=== PATIENT | female | born 1935 | race Caucasian/White ===

== ENCOUNTER 2016-09-17 14:53 | Inpatient (IN) | payer MEDICARE ==
[~2016-09-17] VITALS: Ht 152.4 cm; Wt 46.2 kg
[2016-09-17 15:44] LABS: BASOPHILS 0.2 % (0.0-2.0); EOSINOPHILS 0.3 % (0-7); HEMATOCRIT 40.8 % (36.0-48.0); LYMPHOCYTES 16.4 % (15-50); MCHC 31.9 g/dL (31.0-37.0); MCV 87.9 fL (80.0-100.0); MEAN PLATELET VOLUME 12.2 fL (7.4-10.4); MONOCYTES 9.9 % (2-11); NEUTROPHILS 72.2 % (40-80); PLATELET COUNT 267 10x3/uL (130-400); RBC 4.64 10x6/uL (4.00-5.40); RDW 15.3 % (11.5-14.5); WBC 14.3 10x3/uL (4.8-10.8)
[2016-09-17 16:20] LABS: ALBUMIN 3.4 g/dL (3.4-5.0); ANION GAP 19.9 mmol/L (8-16); BILIRUBIN - TOTAL 0.84 mg/dL (0.2-1.3); CALCIUM 7.9 mg/dL (8.5-10.1); CARBON DIOXIDE 20.4 mmol/L (21.0-32.0); CREATININE - SERUM 1.3 mg/dL (0.6-1.3); POTASSIUM - SERUM 4.3 mmol/L (3.5-5.1); PROTEIN - SERUM 7.2 g/dL (6.4-8.2)
[2016-09-17 16:22] LABS: DIGOXIN 0.2 ng/mL (0.90-2.00)
--- NOTE | 2016-09-17 19:54 | NUR ---
ARRIVED TO FLOOR VIA STRETCHER, ACCOMPANIED BY HOSPITAL STAFF. ORIENTED TO UNIT. PLACED ON TELEMETRY. DOBUTAMINE GTT TO RIGHT FOREARM INFUSING @ 3ML/HR. CALL LIGHT IN REACH. WILL CONTINUE TO MONITOR. SEE NURSE ASSESSMENT.
[2016-09-17 22:23] VITALS: BP 114/72
[2016-09-17] MEDS ORDERED: LANOXIN250 MCG PO (22:23)
[2016-09-17] MEDS ORDERED: FUROSEMIDE40 MG PO (22:23)
[2016-09-17] MEDS ORDERED: TRAZODONE HCL50 MG PO (22:24)
[2016-09-17] MEDS ORDERED: K-DUR20 MEQ PO (22:24)
[2016-09-17] MEDS ORDERED: OMEPRAZOLE40 MG PO (22:24)
[2016-09-17 23:42] VITALS: BP 114/72; BMI 19.9
[2016-09-18 03:36] VITALS: BP 136/90
[2016-09-18 06:22] VITALS: BP 88/52
--- NOTE | 2016-09-18 08:40 | NUR ---
D/C PTS DOBUTAMINE DRIP PER ORDER. INITIATED NS @30ML/HR VIA R.FA PIV WITH DRSG CDI AND SWAB CAPS IN USE. ADMINISTERED SCHEDULED AMIODARONE AND TEACHING PROVIDED. PT IS SITTING UP IN BED WITH VISITORS AT BEDSIDE. PT DENIES ANY CURRENT NEEDS. WILL CPOC.
[2016-09-18 09:05] VITALS: BP 95/56
--- NOTE | 2016-09-18 11:12 | NUR ---
Patient Name: LIA PARIKH Admission Status: ER Accout number: [id number] Admission Date: 09-17-2016 : 1935 Admission Diagnosis:VENTRICULAR TACHYCARDIA Attending: KAYE Current LOS: 1 Anticipated DC Date: Planned Disposition: Independent Living Primary Insurance: [facility] Discharge Planning Comments: * Is the patient Alert and Oriented? Yes 0 * How many steps to enter\exit or inside your home? ELEVATOR 0 * PCP DR. WEAVER 0 * Pharmacy [facility], [place] 0 * Preadmission Environment [facility]DEPENDENT Living 0 * Facility Name [facility] PHONE [phone], FAX [phone] 0 * ADLs Partial Dependent 0 * Partial ADLs (Assistance needed) Medication Management 0 * Equipment Shower Chair Walker 0 * Other Equipment NO MEDICAL EQUIPMENT PROVIDER PREFERENCE 0 * List name and contact numbers for known caregivers / representatives who currently or will assist patient after discharge: EBENEZER MINA, FRIEND, 0 * Community resources currently utilized None 0 * Please name any agencies selected above. NONE 0 * Additional services required to return to the preadmission environment? No 0 * Can the patient safely return to the preadmission environment? Yes 0 * Has this patient been hospitalized within the prior 30 days at any hospital? No 0 CM MET WITH PT IN ROOM TO DISCUSS DISCHARGE PLANNING AND NEEDS. PT REPORTS LIVING AT [facility] FOR THREE YEARS; PT REPORTS RECENT MOVE FROM ASSISTED LIVING TO INDEPENDENT LIVING WHERE SHE HAS HELP WITH MEDICATIONS, PLUMBER SUPERVISOR ONCE WEEKLY AND EMERGENCY ASSISTANCE IF NEEDED. PT HAS WALKER WITH A SEAT AND SHOWER CHAIR. PT HAS NO MEDICAL EQUIPMENT PROVIDER PREFERENCE. CM DISCUSSED AVAILABILITY OF HOME HEALTH, REHAB SERVICES AND MEDICAL EQUIPMENT. PT REPORTS UNKNOWN DISCHARGE NEEDS, PLANS TO RETURN TO [facility]ENT [facility] AND REPORTS [facility] WILL PICK HER UP FOR DISCHARGE HOME. IF REHAB IS NEEDED, PT WILL NOT GO TO [facility] SHE HAS BEEN THERE BEFORE AND NOT GOTTEN GOOD CARE. IF NEEDED, PT WOULD REHAB AT [facility], CHOICE SIGNED. PT AGAIN STATED PLAN TO RETURN HOME TO HER APARTMENT AT [facility]. PT PLANS TO RETURN TO [facility], CM TO FOLLOW AND ASSIST NEEDED. Insurance Claims Representative: Nicko Mary
[2016-09-18 12:28] VITALS: BP 96/71
[2016-09-18 12:57] VITALS: Ht 152.4 cm; Wt 46.2 kg
[2016-09-18 16:28] VITALS: BP 99/66
--- NOTE | 2016-09-18 19:37 | NUR ---
RESUMED CARE OF PT, LYING IN BED RESPIRATIONS EVEN AND UNLABRED ON ROOM AIR. RIGHT FOREARM SALINE LOCKED. 75 CAF ON TELEMETRY. CALL LIGHT IN REACH, WILL CONTINUE TO MONITOR. SEE NURSE ASSESSMENT. NO NEEDS VOICED AT THIS TIME.
[2016-09-18 19:53] VITALS: BP 110/64
--- NOTE | 2016-09-19 00:11 | NUR ---
FACILITY ATTENDANT AT BEDSIDE TO OBTAIN VITALS, CALL LIGHT IN REACH. WILL CONTINUE WITH PLAN OF CARE.
[2016-09-19 00:24] VITALS: BP 96/60
[2016-09-19 04:23] VITALS: BP 110/62
--- NOTE | 2016-09-19 08:47 | EC ---
PATIENT:LIA PARIKH DATE OF SERVICE: 09/17/16 SEX: F MEDICAL RECORD: [id number] DATE OF : [birth year] LOCATION:D. D.212 AGE OF PATIENT: 80 ADMISSION DATE: 09/17/16 REFERRING PHYSICIAN: INTERPRETING PHYSICIAN: JAYDEN BARRIGA MD ECHOCARDIOGRAM REPORT ECHO CHARGES 4 ECHO COMPLETE CLINICAL DIAGNOSIS: CHF ECHOCARDIOGRAPHIC MEASUREMENTS (adult normal given) AC root (d.<3.7cm) 2.3 LV Septum d (<1.2 cm> 1.1 Valve Excursion 0.9 LV Septum (systole) 1.2 Left Atria (s.<4.0cm> 3.8 LVPW d(<1.2cm) 1.0 RV (d.<2.3cm) 3.6 LVPW (sytole) 1.2 LV diastole(<5.6CM) 5.0 MV E-F(>70mm/sec) LV systole 3.8 LVOT Diameter 0.8 MV exc.(>10mm) 1.3 Est.ejection fraction (50-75%) Pericardial Effusion N DOPPLER: LVIT A 56.0 E 111 LA RVSP 67 LVOT 166 AOP1/2T 530 Asc. Ao 450 RVOT 61 RA PA 161 AV Gradient Peak 80.83 AV Mean 51.50 AV Area 0.1 MV Gradient Peak 10.54 MV Mean 2.67 MV Area COMMENTS: Hardware Supplies Sales Representative: Odette SAMPSON Director Clinical Research:1 Dr. Barriga TAPE# PACS DATE OF SERVICE: 09/18/2016 Echocardiogram FINDINGS: 1. Left ventricular chamber size is within normal limits. Left ventricular systolic function is normal. Overall ejection fraction estimated at 50%. 2. Left atrium is within normal limits at 3.8 cm. Right atrium and right ventricular chamber sizes are moderately dilated. 3. Valvular structures: Aortic valve demonstrates severe calcific aortic ECHOCARDIOGRAM REPORT [id number] LIA PARIKH stenosis, valve area calculates to less than 0.5 cm squared and there is a gradient of 81 mm across the valve. The remaining valvular structures have normal structure and motion. 4. Doppler interrogation reveals moderate mitral regurgitation, moderate tricuspid regurgitation, no other valvular insufficiency or stenosis. Pulmonary systolic pressure is elevated and estimated at 67 mmHg. 5. No evidence of pericardial effusion or left ventricular thrombus. TRANSINT:[id number] Voice Confirmation ID: [id number] DOCUMENT ID: [id number] JAYDEN BARRIGA MD at 0847 CC: [id number] DICTATION DATE: 09/18/16 1247 BLADE OPERATOR: 09/18/16 1439 ADM IN [place] [id number] [place] [id number]
[2016-09-19 08:49] VITALS: BP 104/66
--- NOTE | 2016-09-19 09:34 | NUR ---
TELEMETRY CAF. RESP UL ON 02 2L NC. CALL LIGHT IN REACH. WILL CONT. PLAN OF CARE.
--- NOTE | 2016-09-19 12:14 | NUR ---
Patient Name: LIA PARIKH Encounter No: [id number] : 1935 Primary Insurance: [employer] Anticipated DC Date: 09-19-2016 Planned Disposition: Home with Home Health External Planned Provider: [facility] DCP follow-up note: CM RECEIVE DISCHARGE ORDER, MET WITH PT IN ROOM. PT IN AGREEMENT WITH DISCHARGE BACK TO [facility]. CM DISCUSSED AVAILABILITY OF REHAB SERVICES, HOME HEALTH AND MEDICAL EQUIPMENT. PT DENIES REHAB AND EQUIPMENT NEEDS, DOES NOT KNOW IF SHE NEEDS HOME HEALTH BUT WOULD ACCEPT IT. PT REPORTS BEING OUT OF BED INDEPENDENTLY TO THE BATHROOM WITH HER WALKER. PT DOES NOT KNOW HOW SHE IS GOING TO GET HOME AND REQUESTED CM CALL HER POWER OF CLOTH WASHER, EBENEZER. IMPORTANT MESSAGE FROM MEDICARE PROVIDED AND EXPLAINED. CM CALLED EBENEZER MINA, , WHO WILL HOT CELL TECHNICIAN PT FOR DISCHARGE HOME TODAY AND REQUESTED HOME HEALTH FOR PATIENT SHE HAS BEEN WEAK, SHE WOULD LIKE TO USE [facility] THEY HAVE USED [facility] IN THE PAST. CM EXPLAINED THAT THERAPY EVALUATION IS PENDING AND CM WILL ARRANGE HOME HEALTH IF THERE IS A NEED. OF CLOTH WASHER FOR MEDICAL DECISIONS. CM CALLED [facility], , SPOKE TO VU WHO REPORTS THEY WILL ACCEPT PT BACK INTO [facility]ENT LIVING AND WILL KEEP A CLOSE EYE ON HER. VU ASKED THAT NURSE REPORT BE CALLED TO DIGNA OR FOZIA. CM TO FAX DISCHARGE INFORMATION TO [phone]. CM TO CALL EBENEZER MINA, , WHEN PT IS READY TO BE PICKED UP FOR DISCHARGE HOME. CM WAITING THERAPY EVALUATION TO DETERMINE HOME HEALTH NEED. Nicko Mary, CASE MANAGEMENT
[2016-09-19 12:43] VITALS: BP 111/74
--- NOTE | 2016-09-19 12:52 | NUR ---
UP AMBULATING WITH PT SOHA.
[2016-09-19] MEDS ORDERED: CORDARONE200 MG PO ×2 (13:56→14:09)
--- NOTE | 2016-09-19 13:56 | NUR ---
Patient Name: LIA PARIKH Encounter No: [id number] : 1935 Primary Insurance: [employer] Anticipated DC Date: 09-19-2016 Planned Disposition: Home with Home Health External Planned Provider: [facility] DCP follow-up note: CM SPOKE TO PT FOLLOWING THERAPY EVALUATION, PT REPORTS SHE FELT GOOD ENOUGH TO GO BACK HOME BUT WANTS HOME HEALTH FOR CONTINUED THERAPY. CM SPOKE TO CLOTH MENDER WHO OBSERVED PT'S THERAPY WALK AND RECOMMENDED HOME HEALTH FOR CONTNUED THERAPY. CM CALLED [facility], , SPOKE TO MAGALYS WHO TOOK REFERRAL AND WILL CONTACT DR. WEAVER FOR ORDERS THE DOCTOR WILL HAVE TO SIGN ORDERS BEFORE [facility] PT TO [facility]. CM FAXED REFERRAL TO [facility] AT [phone]. CM FAXED DISCHARGE INFORMATION TO [facility] AT [phone]. ALHAJI SPOKE TO EBENEZER MINA IN ROOM WITH PT, EBENEZER AND PT BOTH IN AGREEMENT WITH DISCHARGE PLAN TO [facility] WITH [facility]. EBENEZER UNDERSTANDS THAT DR. WEAVER HAS TO PROVIDE ORDERS BEFORE HOME HEALTH WILL ADMIT AND [facility] IS CONTACTING DR. WEAVER FOR ORDERS. NURSE REPORT TO BE CALLED TO VU OR FOZIA AT [facility], . EBENEZER MINA WILL YARD CLERK FOR DISCHARGE HOME. Nicko Mary, CASE MANAGEMENT
--- NOTE | 2016-09-19 16:20 | NUR ---
IV AND TELEMETRY DCD. DC PLANS GIVEN. UNDERSTANDING VOICED. ESCORTED TO CAR BY W/C.
--- NOTE | 2016-09-23 10:32 | DS ---
PATIENT:LIA GUTIERREZ :31 MEDICAL RECORD: [id number] DISCHARGE SUMMARY ADMISSION DATE: 09/17/16 DISCHARGE DATE: 09/19/16 DATE OF DISCHARGE: 09/19/2016 DIAGNOSES: 1. Atrial fibrillation, chronic. 2. Ventricular tachycardia. 3. 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 4. Severe aortic stenosis. HOSPITAL COURSE: Mrs. Gutierrez presents with increased shortness of breath, found to have pulmonary edema. She was found to have chronic atrial fibrillation, but also episodes of ventricular tachycardia. She underwent diuresis. She was placed on p.o. Cordarone. She had no further episodes of ventricular tachycardia. Her pulmonary edema cleared easily with Lasix. Echocardiogram revealed severe aortic stenosis. This is the etiology of her pulmonary edema and heart failure symptomatology. She had a preserved LV function, so this really was not heart failure, only aortic stenosis. She was discharged home with Lasix, potassium, and amiodarone. Will follow up with [facility] in 1 month. TRANSINT:[id number] Voice Confirmation ID: [id number] DOCUMENT ID: [id number] JAYDEN CONNOLLY MD at 1032 CC: [id number] DICTATION DATE: 09/19/16 1059 BINDER CASER: 09/20/16 0114 DIS IN 09/19/16 [place] [id number] [place] [address]
== END 2016-09-19 16:21 | disposition home health service (06) | DRG 307 ==
LOC: D.ER 14:53 → OBSVTIME 19:16 → D.M2 19:16
PROVIDERS: Emergency Medicine; ADMIT Internal Medicine Interventional Cardiology
DX: I35.0 Nonrheumatic aortic (valve) stenosis (principal); I47.2 Ventricular tachycardia; I48.2 Chronic atrial fibrillation; I50.9 Heart failure, unspecified; Z87.891 Personal history of nicotine dependence

== ENCOUNTER 2016-10-02 11:05 | Inpatient (IN) | payer MEDICARE ==
[~2016-10-02] VITALS: Ht 152.4 cm; Wt 44.5 kg
[~2016-10-02 11:05] MED LIST: CORDARONE200 MG PO; FUROSEMIDE40 MG PO; K-DUR20 MEQ PO; LANOXIN250 MCG PO; OMEPRAZOLE40 MG PO; TRAZODONE HCL50 MG PO
[2016-10-02 12:10] LABS: BASOPHILS 0.2 % (0.0-2.0); EOSINOPHILS 0.4 % (0-7); HEMATOCRIT 43.5 % (36.0-48.0); IMMATURE GRANULOCYTES 0.4 % (0-5); LYMPHOCYTES 22.1 % (15-50); MCH 28.2 pg (26.0-34.0); MCHC 32.2 g/dL (31.0-37.0); MCV 87.5 fL (80.0-100.0); MEAN PLATELET VOLUME 12.6 fL (7.4-10.4); MONOCYTES 10.6 % (2-11); NEUTROPHILS 66.3 % (40-80); RBC 4.97 10x6/uL (4.00-5.40); RDW 16.5 % (11.5-14.5); WBC 10.3 10x3/uL (4.8-10.8)
[2016-10-02 12:11] LABS: PLATELET COUNT 164 10x3/uL (130-400)
[2016-10-02 12:16] LABS: INR 1.52 (0.85-1.17); PROTIME 18.3 SECONDS (11.6-15.0)
[2016-10-02 12:22] LABS: ALBUMIN 3.7 g/dL (3.4-5.0); ANION GAP 19.7 mmol/L (8-16); BILIRUBIN - TOTAL 1.65 mg/dL (0.2-1.3); CALCIUM 9.3 mg/dL (8.5-10.1); CARBON DIOXIDE 19.8 mmol/L (21.0-32.0); CREATININE - SERUM 1.4 mg/dL (0.6-1.3); POTASSIUM - SERUM 4.5 mmol/L (3.5-5.1); PROTEIN - SERUM 7.3 g/dL (6.4-8.2)
[2016-10-02 12:31] LABS: MAGNESIUM - SERUM 1.3 mg/dL (1.8-2.4); TROPONIN-I 0.052 ng/mL (0.000-0.060)
--- NOTE | 2016-10-02 18:18 | NUR ---
PATIENT ADMITTED FROM ER DIAG: PNEUMONIA/AFIB. DR DEL VALLE. ALERT/ORIENT X4. LEFT AREM SALINE LOCK 18 REJI. OXYGEN ON AT 4L PER N/C.
[2016-10-02 20:00] VITALS: BP 101/70
[2016-10-02 21:16] VITALS: BP 101/71; BMI 19.1
[2016-10-03] VITALS: BP 81/94
--- NOTE | 2016-10-03 01:43 | NUR ---
PT CALLED FOR ASSISTANCE TO BR. PT VOIDED WITHOUT ANY DIFFICULTIES. PT STATES SHE WAS RESTING WELL AND READY TO CONTINUE SLEEPING. ASSISTED HER BACK INTO BED NO FURTHER NEEDS NOTED AT THIS TIME. WILL CTM.
[2016-10-03 04:00] VITALS: BP 95/60
--- NOTE | 2016-10-03 05:29 | NUR ---
PROVIDED PT WITH MORNING MEDICATIONS. PT SITTING UP IN BED RESTING QUIETLY. PT STATES SHE SLEPT PRETTY GOOD AND JUST HOPES TO GET BETTER SO SHE CAN BE DISCHARGED. PT IS AWARE WE NEED A UA AND CX AND VERBALIZED UNDERSTANDING ON PROPER CLEAN MIDSTREAM COLLECTION PROCESS. CUP IN ROOM, PT WILL CALL WHEN NEEDING TO URINATE AGAIN. PT DENIES ANY CURRENT NEEDS AT THIS TIME. CL IN REACH, BED IN LOWEST, SIDE RAILS X2 WITH BUILT IN BED ALARM ON. WILL CPOC.
--- NOTE | 2016-10-03 05:33 | HP ---
PATIENT: LIA PARIKH MEDICAL RECORD: [id number] ACCOUNT: [id number] LOCATION:[facility].2111 : [birth year] ADMISSION DATE: 10/02/16 HISTORY AND PHYSICAL EXAMINATION REASON FOR ADMISSION: Cough and vomiting. HISTORY OF PRESENT ILLNESS: The patient is an 80-year-old female, patient of Dr. Batista at [facility] and Dr. Barriga with cardiology. She was hospitalized at [facility] on 09/17/16 for shortness of breath, mild CHF and atrial fibrillation. She was placed on Dobutrex and had V-tach and that was discontinued. Echocardiogram was performed showing an EF of 50%; however, had severe . She was placed on Cordarone and arrhythmia resolved. She is noted to have some mild congestion and right pleural effusion while hospitalized. She was discharged back to [facility] and this morning developed vomiting, vomited several at breakfast and went to lie down and did not feel well. She was noted to have a cough for the last 2 days with no documented fever. She was brought to the Emergency Room for this reason. In the ER, she was evaluated by Dr. Boateng and he noticed a right lower lobe pneumonia, he now has admitted the patient for pneumonia and recurrent vomiting. The patient denies prior history of pneumonia, said she smoked in the past. PAST MEDICAL HISTORY: Atrial fibrillation, ventricular tachycardia, severe aortic stenosis, moderate mitral regurgitation, moderate tricuspid regurgitation, pulmonary hypertension and GERD. ALLERGIES: PENICILLIN. PAST SURGICAL HISTORY: Had cataract surgery in her left eye. No other surgical history. FAMILY HISTORY: Mother was alcoholic, at 36. Father , she thinks from heart disease. He was a drinker as well. SOCIAL HISTORY: She is . Her was a heavy smoker and she said she drank alcohol in the past, moderate amount of beer. She smoked in the past, but none recently. HOME MEDICATIONS: Amiodarone 200 mg p.o. daily, Lasix 40 mg p.o. q.a.m., potassium chloride 20 mEq p.o. b.i.d. and omeprazole 40 mg p.o. daily. REVIEW OF SYSTEMS: GENERAL: Has been somewhat fatigued today. No fever. 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 Has some hearing difficulty. No sore throat. RESPIRATORY: Has had mild shortness of breath for the last day or so with dry cough, nonproductive. CARDIAC: No recent exertional chest pain, claudication, or edema. GASTROINTESTINAL: Has intermittent dyspepsia, had marked nausea and vomiting several times this morning without hematemesis. She denies diarrhea or abdominal pain, currently, he has had nausea that has resolved. Denies history of liver disease, gallbladder disease. GENITOURINARY: Mild stress incontinence. No dysuria. GYNECOLOGICAL: No vaginal bleeding. She is nullipara. MUSCULOSKELETAL: Has chronic arthralgias in her knees and lumbar spine. HISTORY AND PHYSICAL [id number] LIA PARIKH BENNY INTEGUMENT: No rash or itching. PSYCHIATRIC: Denies depression. NEUROLOGIC: No history of stroke, TIA, or vascular headaches. PHYSICAL EXAMINATION: VITAL SIGNS: Temperature 98 degrees Fahrenheit orally, pulse 118 and regular, respirations are 20, blood pressure 119/56, sats 98% on room air. HEENT: Normocephalic. Eyes are clear with opacified lens on the left and right, no vision in the right eye. Oropharynx is unremarkable. NECK: No bruits or masses. CHEST: She has fine crackles in the bases and faint wheezes in the upper lobes bilaterally. HEART: Regular rate and rhythm with a II/ aortic systolic murmur. BREASTS: Symmetrical. ABDOMEN: Soft, nontender. Bowel sounds are active. PELVIC: Deferred. EXTREMITIES: No CC&E. NEUROLOGICAL: Oriented to person, place and time. Memory is intact. Gait was not tested, but she can walk with a walker her vegetable farm manager states. PSYCHIATRIC: Denies depressed mood. LABORATORY DATA: White count of 10,000, H&H of 14 and 43, platelet count of 164,000, normal diff. Chemistry shows a BUN and creatinine of 40 and 1.4. Initial lactic acid was 4.3, now 2.5. Magnesium was low at 1.3, bilirubin is 1.65, AST 261, ALT 200. ProBNP is 35,629. Urinalysis is pending. INR is 1.52. Chest x-ray shows slight worsening in the right lower lobe airspace disease with small right pleural effusion and COPD changes. Gallbladder ultrasound showed no cholelithiasis. ASSESSMENT: 1. Probable right lower lobe pneumonia. 2. Vomiting and diarrhea, most likely viral etiology. 3. Aortic stenosis with mild congestive heart failure. 4. History of ventricular tachycardia and atrial fibrillation, currently in sinus rhythm. 5. Hypomagnesemia. 6. Prerenal azotemia. PLAN: The patient will be admitted for pulmonary toilet, IV antibiotics, concerning her lung airspace disease. Replace magnesium. Cardiac monitoring. Dr. Barriga has been consulted. TRANSINT:[id number] Voice Confirmation ID: [id number] DOCUMENT ID: [id number] MAXIM DEL VALLE MD at 0533 CC: [id number] DICTATION DATE: 10/02/16 184 INSPECTOR STRUCTURAL BONDING: 10/02/16 2100 ADM IN [facility] [address] [place] [id number]
[2016-10-03 06:14] LABS: BASOPHILS 0.2 % (0.0-2.0); EOSINOPHILS 0.4 % (0-7); HEMATOCRIT 43.5 % (36.0-48.0); HEMOGLOBIN 13.8 g/dL (12-16); IMMATURE GRANULOCYTES 0.7 % (0-5); LYMPHOCYTES 14.8 % (15-50); MCH 28.1 pg (26.0-34.0); MCHC 31.7 g/dL (31.0-37.0); MCV 88.6 fL (80.0-100.0); MONOCYTES 11.2 % (2-11); NEUTROPHILS 72.7 % (40-80); PLATELET COUNT 162 10x3/uL (130-400); RBC 4.91 10x6/uL (4.00-5.40); RDW 16.5 % (11.5-14.5)
[2016-10-03 06:17] LABS: WBC 15.5 10x3/uL (4.8-10.8)
[2016-10-03 06:52] LABS: ANION GAP 24.2 mmol/L (8-16); CALCIUM 8.4 mg/dL (8.5-10.1); CARBON DIOXIDE 15.7 mmol/L (21.0-32.0); CREATININE - SERUM 2.1 mg/dL (0.6-1.3); MAGNESIUM - SERUM 1.5 mg/dL (1.8-2.4); POTASSIUM - SERUM 5.9 mmol/L (3.5-5.1)
--- NOTE | 2016-10-03 07:02 | NUR ---
PTS K 5.9 HELD AM POTASSIUM R/T IT BEING ELEVATED. MAG LEVEL 1.5 PROVIDED PT WITH PROTOCOL REPLACEMENT, PT WILL NEED ANOTHER DOSE IN 2H. LAB TO BE RECHECKED IN AM AND ORDER WAS PLACED. PT RESTING QUIETLY DENIES ANY PAIN OR NEEDS AT THIS TIME. CL IN REACH. WILL CPOC.
[2016-10-03 09:09] VITALS: BP 66/38
[2016-10-03 12:33] VITALS: Ht 152.4 cm; Wt 44.5 kg
[2016-10-03 12:38] VITALS: BP 78/55
--- NOTE | 2016-10-03 14:15 | NUR ---
PATIENT WITH VISITORS AT BEDSIDE. WANTED TO SPEAK TO THE NURSE REGARDING PATIENT'S STATUS. INFORMED POA PATIENT HAD INCREASED POTASSIIUM THIS AM AND HAD BEEN GIVEN KAYEXALATE AND MAG LOW WITH SUPPLEMENTAL MAGNESIUM ADMINISTERED WITH LAB FOR AM. B/P LOW TODAY AND IN UCAF RATE 106. DR DEL VALLE OFFICE CALLED AND SPOKE WITH DOCTOR AUTOMATIC SPINNING LATHE SETTER DR KAISER. ORDERS RECEIVED.
[2016-10-03 15:45] VITALS: BP 74/56
--- NOTE | 2016-10-03 15:52 | NUR ---
RECEIVED PATIENT LAYING IN BED. ORIENTED TO SELF AND HOSPITAL. DENIES PAIN. WANTED ASSIST TO BSC HOWEVER PATIENT WAS INCONTINENT BEFORE COULD GET ON BSC. O2 AT 3L/MIN PER NC IN USE. ON TELEMETRY WITH RATE 106 UCAF. REDNESS TO BUTTOCKS. DENIES NEEDS. BED IN LOW POSITION AND CALL LIGHT WITHIN REACH.
--- NOTE | 2016-10-03 16:14 | NUR ---
Patient Name: LIA PARIKH Admission Status: ER Accout number: [id number] Admission Date: 10-02-2016 : 1935 Admission Diagnosis:COUGH Attending: ALBA Current LOS: 1 Anticipated DC Date: Planned Disposition: Alf Facility Primary Insurance: [facility] PLANNED EXTERNAL PROVIDER: ANDREW HEAD DECISION Discharge Planning Comments: * Is the patient Alert and Oriented? Yes 0 * How many steps to enter\exit or inside your home? ELEVATOR 0 * PCP DR WEAVER 0 * Pharmacy [facility] IN [place] 0 * Preadmission Environment Acute Inpatient Rehab 0 * Facility Name [facility] [phone] 0 * ADLs Partial Dependent 0 * Partial ADLs (Assistance needed) Medication Management 0 * Equipment Shower Chair Walker 0 * Other Equipment NO MEDICAL EQUIPMENT PROVIDER PREFERENCE 0 * List name and contact numbers for known caregivers / representatives who currently or will assist patient after discharge: EBENEZER MINA, FRIEND/ADILENE, 0 * Community resources currently utilized Home Health 0 * Please name any agencies selected above. [facility] [employer] [phone] 0 * Additional services required to return to the preadmission environment? Yes * Can the patient safely return to the preadmission environment? Yes 0 * Has this patient been hospitalized within the prior 30 days at any hospital? Yes 0 CM MET WITH PT IN ROOM TO DISCUSS DISCHARGE PLANNING AND NEEDS. PT REPORTS LIVING AT [facility] AND HAS ASSISTANCE WITH MEDICATIONS, MEALS AND ONCE WEEKLY CLEANING. PT HAS SHOWER CHAIR AND WALKER WITH NO PROVIDER PREFERENCE. PT HAS HOME HEALTH WITH [facility]. CM DISCUSSED AVAILABILITY OF REHAB SERVICES. PT KNOWS SHE MAY NEED REHAB, REPORTS FEELING VERY BAD TODAY AND IS VERY WEAK. PT REPORTS IF NEEDING REHAB, SHE WOULD WANT TO GO TO [facility], NOT [facility]. PT REPORTS EBENEZER MINA ASSISTS HER WITH DECISIONS WHEN NEEDED. CM CALLED EBENEZER MINA, ; EBENEZER REPORTS SHE THINKS PT WILL NEED SKILLED REHAB, BUT IS HESITANT TO SEND PT TO [facility] BECAUSE IT IS [place] LONG WAY FOR EBENEZER TO DRIVE. EBENEZER WILL CONSIDER SKILLED REHAB OPTIONS AND LET CM KNOW WHAT FACILITIES SHE PREFERS. CM WAITING DECISION FROM [facility], EBENEZER MINA, OF CUSTODIAL FACILITY PREFERENCE FOR REHAB PLACEMENT AT DISCHARGE IF NEEDED. Leach Tank Tender: Nicko Mary
[2016-10-03 20:00] VITALS: BP 68/47
--- NOTE | 2016-10-03 20:10 | NUR ---
REPORT RECEIVED AND CARE ASSUMED. SITTING UP AT 45 DEGREES IN BED. UNABLE TO GET ANY RESPONSE. FRIEND OF PATIENT HERE. B/P=68/47 PULSE =58 RESP = 30 VERY SHALLOW AND LABORED. TELEMETRY SHOWS UCAF. WILL MONITOR AND CONTINUE POC.
--- NOTE | 2016-10-03 22:25 | NUR ---
TELEMETRY SHOWS HR AT 33.MIN. RESP AND PULSE ABSENT. DR. KAISER CALLED RE PATIENTS STATUS, CUSTOMER AGENT NOTIFIED, FRIEND EBENEZER MINA CALLED.
--- NOTE | 2016-10-03 22:30 | NUR ---
ER DOCTOR CAME TO PRONOUNCE PATIENT, ALIYA CALLED, AND [facility] CALLED TO PICK HER UP.
== END 2016-10-03 22:40 | DRG 193 ==
LOC: D.ER 11:05 → D.M2 15:23
PROVIDERS: Nurse Practitioner Family; ADMIT Family Medicine
DX: J18.9 Pneumonia, unspecified organism (principal); I50.21 Acute systolic (congestive) heart failure; I27.2 Other secondary pulmonary hypertension; I48.2 Chronic atrial fibrillation; K21.9 Gastro-esophageal reflux disease without esophagitis; E83.42 Hypomagnesemia; E87.5 Hyperkalemia; I08.3 Combined rheumatic disorders of mitral, aortic and tricuspid valves